=== PATIENT | male | born 1945 | race Caucasian/White ===

== ENCOUNTER → 2020-07-06 | Day surgery (SDC) | payer OTHER ==
[~2020-07-06] MED LIST: FLEVOXIN TABLE1 EACH PO
== END | disposition home or self-care (01) ==
LOC: ADM 07-01 09:00 → CIR.AMB 06:45
PROVIDERS: ATTEND Urology
DX: N20.1 Calculus of ureter (principal); Z20.822 Contact with and (suspected) exposure to COVID-19

== ENCOUNTER 2020-08-20 08:15 | Inpatient (IN) | payer OTHER ==
[~2020-08-20] VITALS: Ht 167.6 cm; Wt 79.4 kg
== END 2020-08-26 13:51 | disposition home or self-care (01) | DRG 708 ==
LOC: SURH 08-24 07:00 → O/R 08-24 08:55 → SURH 08-24 14:26
PROVIDERS: ADMIT Urology; ATTEND Urology
PROC: 0VT00ZZ Resection of Prostate, Open Approach (ICD-10-PCS; principal; 2020-08-24 07:00)
DX: N40.1 Benign prostatic hyperplasia with lower urinary tract symptoms (principal); R33.8 Other retention of urine